=== PATIENT | female | born 1960 | race Caucasian/White ===

== ENCOUNTER → 2019-06-21 05:33 | Day surgery (SDC) | payer OTHER ==
[~2019-06-21 05:33] MED LIST: Acetaminophen TAB* 325 MG ONE; Acetaminophen TAB* 325 MG PO PRN; Buffered Lidocaine 1% SYRIN* 1 ML/SYRINGE INTRADERM ONE; Bupivacaine 0.25% SDV PF* 10 ML VIAL INJ ONE; Dexamethasone IV* 4 MG/ML 1 ML (4 MG) ONE; DiMENhydriNATE IV* 50 MG/ML VIAL IV PUSH PRN; DiMENhydriNATE IV* 50 MG/ML VIAL ONE; EPHEDrine (Pressors)* 50 MG/ML VIAL ONE; KETAMINE HCL* 50 MG/ML 10 ML VIAL ONE; Ketorolac INJ* 30 MG/ML 1 ML VIAL ONE; Lactated Ringers 1000 ML Bag* 1,000 ML IV SCH; Lidocaine 1% INJ* 10 MG/ML 30 ML SDV ONE; Lidocaine 2% PF * 5 ML VIAL ONE; Metoclopramide IV* 5 MG/ML 2 ML VIAL ONE; Midazolam* 1 MG/ML 2 ML VIAL (2 MG) ONE; Naloxone* 0.4 MG/ML 1 ML VIAL IV PRN; Ondansetron INJ* 2 MG/ML VIAL ONE; Phenylephrine 10 MG/ML VIAL* 1 ML VIAL ONE; Propofol* 10 MG/ML 20 ML BTL ONE; Propofol* 500 MG/50 ML BTL ONE; Remifentanil* 2 MG VIAL ONE; fentaNYL* 50 MCG/ML 2 ML VIAL (100 MCG VIAL) ONE; oxyCODONE TAB* 5 MG TAB ONE; oxyCODONE TAB* 5 MG TAB PO PRN
--- NOTE | 2019-06-21 10:08 | BRIEFOPN ---
Brief Operative/Procedure Note - Operation Details Pre-Op Diagnosis: Grave's disease Post-Op Diagnosis: same Procedures: total thyroidectomy Surgeon(s)/Proceduralists: Emmanuel. Assist: NEO Hyatt; ANDREWS Posadas Anesthesia: GET Estimated Blood Loss: < 10 ml Findings: as above Specimen(s)/Culture(s) Description: throid gland (left and right as separate specimens) Complications: none
[2019-06-21] MEDS: fentaNYL* 50 MCG/ML 2 ML VIAL (100 MCG VIAL) IV PRN ×4 (10:59→11:45)
--- NOTE | 2019-06-21 12:09 | OP ---
CC: Dr. Tono Kerr OPERATIVE REPORT: DATE OF OPERATION: 06/21/19 DATE OF : 58 SERVICE: General Surgery. SURGEON: Nuris Benitez MD INTENSIVE CARE NURSE: NEO Henry ANESTHESIOLOGIST: Sarah Jain DO ANESTHESIA: General endotracheal anesthesia. PRE-OP DIAGNOSIS: Graves disease. POST-OP DIAGNOSIS: Graves disease. OPERATIVE PROCEDURE: Total thyroidectomy. ESTIMATED BLOOD LOSS: Minimal, less than 10 cc. SPECIMENS: Right and left thyroid lobes. INDICATIONS FOR SURGERY: Ms. Gonzales is a very pleasant 58-year-old female with a history of Graves disease. She previously had radioactive iodine ablation, but had a recurrence after this; therefore, she wished to undergo a total thyroidectomy. She understood that the risks included, but were not limited to bleeding, infection, injury to nearby structures such as the recurrent laryngeal nerve, and hypoparathyroidism. She understood the alternatives and benefits as well and she wished to proceed. DESCRIPTION OF PROCEDURE: The patient was brought back to the operating room and placed on the operating table in the supine position. Sequential compression devices were placed on the bilateral lower extremities for DVT prophylaxis. No antibiotics were administered. General endotracheal anesthesia was induced. The electrodes of the nerve monitor were attached. Both arms were tucked and then a time- out was performed prior to administering local anesthesia to the anterior neck. Local anesthesia consisting of 0.25% Marcaine and 1% lidocaine was infiltrated into the anterior neck approximately 2 fingerbreadths above the sternal notch in the subcutaneous space. After this , the neck was prepped and draped in normal sterile fashion. Prior to beginning the surgery, a second time-out was performed verifying the patient's name, date of , and the procedure to be performed. After this was done, a 4 cm transverse incision was made in the mid anterior neck approximately 2 fingerbreadths above the sternal notch. The skin was divided down through the subcutaneous tissue. The platysma was divided. The inferior and superior subplatysmal flaps were developed. The median raphe between the strap muscles was identified and divided and the strap muscles were retracted laterally off of the isthmus of the midline. Superior to the isthmus, there was a very long pyramidal lobe that was dissected out and divided at its superior extent. After this was done, the isthmus was divided off the trachea at the midline using the LigaSure. Attention was then turned towards the right thyroid lobe. The medial attachments of the thyroid were divided using LigaSure. The space of Bryan between the cricothyroid muscle and the superior pole was divided and then the space lateral to the thyroid lobe was developed. The middle thyroid vein was identified and divided with LigaSure. The superior pole vessels were then divided using combination of 2-0 silk sutures and LigaSure. After this was done, the right lobe was able to be rotated medially and anteriorly out the neck. The recurrent laryngeal nerve was identified both visually and with the assistance of the nerve monitor. Its entire course was traced out inferiorly and superiorly as I entered to the inferior constrictor muscles. The lower parathyroid gland was identified anterior to the nerve and also it was preserved on its pedicle. The upper gland was also identified and it was posterior to the nerve near the cricothyroid muscle and it was also preserved. The thyroid was then divided off the trachea using LigaSure. Its upper pole was marked and was carried off the table as a specimen. Next, attention was turned towards the left thyroid lobe. In a similar fashion, the medial attachments were divided using LigaSure. The space of Bryan was developed and divided and then the space lateral to the left thyroid lobe was fully developed and the strap muscles were retracted laterally off of the lobe. The middle thyroid vein was identified and divided. The left upper pole vessels were divided using combination of 2-0 silk sutures and LigaSure and then the left thyroid lobe was able to be rotated medially and anteriorly out of the neck. The recurrent laryngeal nerve on the left side was also identified easily and its entire course was traced out. The left upper and lower parathyroid glands were also identified and preserved and the lobe was divided off of the trachea using LigaSure. Its upper pole was marked and it was carried off the table as a specimen. Next, hemostasis was obtained in both the right and left lateral necks. Tisseel was placed. The strap muscles were reapproximated using 4-0 Vicryl sutures. The platysma was reapproximated using 4-0 Vicryl sutures. The skin was closed using a running 5-0 Prolene suture. Sterile dressing was then placed. The patient's anesthesia was reversed and she was taken to the PACU in stable condition. At the end of the case, all counts were correct and I was present during the entirety of the case. [id number]/[facility] #: [id number] [facility]
[2019-06-29 20:02] VITALS: BP 144/78
== END | disposition home or self-care (01) ==
LOC: OR 05:33
PROVIDERS: ATTEND Surgery
DX: E05.00 Thyrotoxicosis with diffuse goiter without thyrotoxic crisis or storm (principal); H40.9 Unspecified glaucoma
CPT/HCPCS: 88307; A9270-GY; C1776; J1100; J1240; J1885; J2250; J2405; J2704; J2765; J3010; J3490